=== PATIENT | female | born 1965 | race Caucasian/White ===

== ENCOUNTER 2022-05-14 15:00 | Emergency (ER) | payer OTHER ==
[~2022-05-14] VITALS: Ht 162.6 cm; Wt 59.0 kg
--- NOTE | 2022-05-14 15:15 | NUR ---
57 years old female presents to er c/o right foot itching for 2 weeks, skin intact.
[2022-05-14] MEDS ORDERED: CLOT15CR5 TP (15:19)
--- NOTE | 2022-05-14 15:22 | NUR ---
condition stable d/c home with instructions after care reviewed understood left er ambulatory with steady gait.
== END 2022-05-14 15:35 | disposition home or self-care (01) ==
LOC: ER 15:00
DX: B35.3 Tinea pedis (principal); R03.0 Elevated blood-pressure reading, without diagnosis of hypertension
CPT/HCPCS: A4663